=== PATIENT | female | born 1960 | race African-American/Black ===

== ENCOUNTER 2016-10-11 09:19 | Emergency (ER) | payer MEDICARE, OTHER ==
[~2016-10-11] VITALS: Ht 165.1 cm; Wt 89.8 kg
--- NOTE | 2016-10-11 09:51 | PHYS DOC ---
Past Medical History Past Medical History: GERD, Other Additional Past Medical Histor: sarcoidosis Past Surgical History: Cholecystectomy, Gastric Bypass, Tonsillectomy, Tubal ligation, Other Additional Past Surgical Histo: thyroidectomy, hernia repair Alcohol Use: Rarely Drug Use: None Adult General Chief Complaint Chief Complaint: CHEST PAIN HPI HPI Patient is a 56 year old female presents to the emergency department with a history of bariatric surgery 9 months ago. Patient states that 3-4 days ago she has been having chest discomfort with eating and feels as though someone is choking her. She currently states her pain is a 0/10. She states [facility] had completed an ultrasound to make sure she was not having problems with her sarcoidosis. Patient denies any radiation of pain. She does state that the pain causes her to have some shortness of air. Patient states that she did not call her bariatric surgeon choice to provide them with the discomfort she was having. Review of Systems Review of Systems Constitutional: Denies fever or chills [] Eyes: Denies change in visual acuity, redness, or eye pain [] HENT: Denies nasal congestion or sore throat [] Respiratory: Denies cough or shortness of breath [] Cardiovascular: No additional information not addressed in HPI [] GI: upper abdominal pain, denies nausea, vomiting, bloody stools or diarrhea [] : Denies dysuria or hematuria [] Musculoskeletal: Denies back pain or joint pain [] Integument: Denies rash or skin lesions [] Neurologic: Denies headache, focal weakness or sensory changes [] Endocrine: Denies polyuria or polydipsia [] Current Medications Current Medications Current Medications Medications (Trade) Dose Ordered Sig/Radha Start Time Stop Time Status Last Admin Dose Admin Info (Do NOT chart on this entry -- for MONITORING) 1 each PRN DAILY PRN 10/11/16 10:30 10/13/16 10:29 Iohexol (Omnipaque 240 Mg/ml) 50 ml 1X ONCE 10/11/16 10:15 10/11/16 10:18 DC 10/11/16 11:56 50 ML Iohexol (Omnipaque 300 Mg/ml) 75 ml 1X ONCE 10/11/16 10:15 10/11/16 10:18 DC 10/11/16 11:56 75 ML Pantoprazole Sodium (Protonix) 40 mg 1X ONCE 10/11/16 13:30 10/11/16 13:31 DC 10/11/16 14:17 40 MG Allergies Allergies Allergies Coded Allergies Type Severity Reaction Last Updated Verified Penicillins Allergy Severe "made me legally blind" 10/11/16 Yes lemon Allergy Severe "I swell all up" 10/11/16 Yes [place] owingeh Allergy Severe "I swell all up" 10/11/16 Yes diphenhydramine Adverse Reaction Mild vomiting 10/11/16 Yes Physical Exam Physical Exam Constitutional: Well developed, well nourished, no acute distress, non-toxic appearance. [] HENT: Normocephalic, atraumatic, bilateral external ears normal, oropharynx moist, no oral exudates, nose normal. [] Eyes: PERRLA, EOMI, conjunctiva normal, no discharge. [] Neck: Normal range of motion, no tenderness, supple, no stridor. [] Cardiovascular:Heart rate regular rhythm, no murmur [] Lungs & Thorax: Bilateral breath sounds clear to auscultation [] Abdomen: Bowel sounds hypoactive, soft, no tenderness, no masses, no pulsatile masses. [] Skin: Warm, dry, no erythema, no rash. [] Back: No tenderness Extremities: No tenderness, no cyanosis, no clubbing, ROM intact, no edema. [] Neurologic: Alert and oriented X 3, normal motor function, normal sensory function, no focal deficits noted. [] Psychologic: Affect normal, judgement normal, mood normal. [] Current Patient Data Vital Signs Vital Signs Date Time Temp Pulse Resp B/P (MAP) Pulse Ox O2 Delivery O2 Flow Rate FiO2 10/11/16 11:30 74 12 156/89 (111) 100 Room Air 10/11/16 09:25 98.0 98.0 Lab Values Laboratory Tests Test 10/11/16 09:45 10/11/16 09:55 10/11/16 10:55 10/11/16 13:30 White Blood Count 6.5 x10^3/uL (4.0-11.0) Red Blood Count 5.47 x10^6/uL (3.50-5.40) H Hemoglobin 11.7 g/dL (12.0-15.5) L Hematocrit 36.0 % (36.0-47.0) Mean Corpuscular Volume 66 fL (79-100) L Mean Corpuscular Hemoglobin 21 pg (25-35) L Mean Corpuscular Hemoglobin Concent 33 g/dL (31-37) Red Cell Distribution Width 17.2 % (11.5-14.5) H Platelet Count 324 x10^3/uL (140-400) Neutrophils (%) (Auto) 53 % (31-73) Lymphocytes (%) (Auto) 34 % (24-48) Monocytes (%) (Auto) 10 % (0-9) H Eosinophils (%) (Auto) 2 % (0-3) Basophils (%) (Auto) 1 % (0-3) Neutrophils # (Auto) 3.5 x10^3uL (1.8-7.7) Lymphocytes # (Auto) 2.2 x10^3/uL (1.0-4.8) Monocytes # (Auto) 0.7 x10^3/uL (0.0-1.1) Eosinophils # (Auto) 0.2 x10^3/uL (0.0-0.7) Basophils # (Auto) 0.0 x10^3/uL (0.0-0.2) Platelet Estimate Adequate (ADEQUATE) Anisocytosis Slight Microcytosis Slight Troponin I Quantitative < 0.017 ng/mL (0.000-0.055) < 0.017 ng/mL (0.000-0.055) POC Urine HCG, Qualitative Hcg negative (Negative) Sodium Level 140 mmol/L (136-145) Potassium Level 4.0 mmol/L (3.5-5.1) Chloride Level 103 mmol/L (98-107) Carbon Dioxide Level 28 mmol/L (21-32) Anion Gap 9 (6-14) Blood Urea Nitrogen 18 mg/dL (7-20) Creatinine 1.0 mg/dL (0.6-1.0) Estimated GFR (Cockcroft-Gault) 69.4 BUN/Creatinine Ratio 18 (6-20) Glucose Level 85 mg/dL (70-99) Calcium Level 9.5 mg/dL (8.5-10.1) Total Bilirubin 0.3 mg/dL (0.2-1.0) Aspartate Amino Transferase (AST) 14 U/L (15-37) L Alanine Aminotransferase (ALT) 20 U/L (14-59) Alkaline Phosphatase 104 U/L (46-116) Total Protein 8.6 g/dL (6.4-8.2) H Albumin 3.3 g/dL (3.4-5.0) L Albumin/Globulin Ratio 0.6 (1.0-1.7) L Creatine Kinase 41 U/L (26-192) Creatine Kinase MB (Mass) < 0.5 ng/mL (0.0-3.6) Creatine Kinase MB Relative Index % (0-4) Laboratory Tests 10/11/16 09:45 Laboratory Tests 10/11/16 10:55 EKG EKG Heart rate 76 rhythm noted no STEMI noted per Dr. Giles.[] Radiology/Procedures Radiology/Procedures [facility] [address] [place] [address] IMAGING REPORT Signed PATIENT: FRANC CHANEY ACCOUNT: [id number] : 1960 LOCATION: ER AGE: 56 SEX: F EXAM STATUS: REG ER ORD. PHYSICIAN: ANGE COX APRN REASON: chest discomfort after eating hx bariatric sugery PO contrast also please PROCEDURE: CT CHEST ABD PELVIS W/CONTRAST CT of the chest, abdomen and pelvis with contrast, 10/11/2016: History: Chest pain after eating Multidetector CT imaging was performed following oral and IV administration of contrast. Comparison is made to a study from 03/29/2013. There are moderate streaky parenchymal opacities in both lungs also present on the previous study. The findings are compatible with scarring in this patient with a given history of sarcoidosis. The scarring is confluent in some areas with associated volume loss. There is hyperexpansion of the right upper lobe, unchanged. No new pulmonary abnormality is seen. There is no evidence of pleural fluid. The thoracic aorta is of normal caliber. The heart is not enlarged. No mediastinal or hilar adenopathy is evident. There are calcified mediastinal and left hilar lymph nodes. There is a suggestion of a small hiatal hernia. The gallbladder is surgically absent. No hepatic abnormality is seen. The pancreas is unremarkable. The spleen is of normal size. No renal abnormality is detected. There is mild aortoiliac calcific plaquing without evidence of aneurysm. No abdominal or pelvic adenopathy is seen. There are numerous surgical sutures related to the stomach in this patient with the given history of previous gastric bypass surgery. The bowel loops are not dilated. The appendix is visualized and shows no abnormality. No free fluid or free air is evident in the abdomen or pelvis. IMPRESSION: 1. Moderately severe bilateral parenchymal scarring, presumably related to the patient's given history of sarcoidosis. 2. Previous gastric surgery. 3. Small hiatal hernia. 4. No acute abnormality is identified in the chest, abdomen or pelvis. PQRS Compliance Statement: One or more of the following individualized dose reduction techniques were utilized for this examination: 1. Automated exposure control 2. Adjustment of the mA and/or kV according to patient size 3. Use of iterative reconstruction technique DICTATED and SIGNED BY: MACKENZIE RAMIREZ MD DATE: 10/11/16 1222 CC: RL PRAJAPATI MD; EVONNE GILES MD; ANGE COX APRN ~ Impressions: GERD Course & Med Decision Making Course & Med Decision Making Pertinent Labs and Imaging studies reviewed. (See chart for details) 1137 spoke with the lab in regards to her chemistry results. They state the patient is a very difficult stick they just received the blood work and should have some chemistries back in 10 minutes. [address] Giles who will continue with patients treatment plan, Dr Giles is aware the CT scan is still pending at this time. She was a checkout to me to follow-up on the CT scan. It shows a small hiatal hernia. Her pain is consistent with pain on swallowing and will likely need to follow-up with GI doctor. She is being discharged with Nexium since she's been out of that in addition to referral to Dr. Todd. I am not concerned that this is her heart is causing this is his only made when she tries to swallow food and feels like it gets stuck in her esophagus. She is being discharged home in stable condition at this time. Return precautions given she is agreeable to the plan and being discharged in stable condition. Dragon Disclaimer Dragon Disclaimer This electronic medical record was generated, in whole or in part, using a voice recognition dictation system. Departure Departure Impression: Primary Impression: Abdominal pain Disposition: 01 HOME, SELF-CARE Condition: STABLE Referrals: WILBUR OGLESBY MD (PCP) Patient Instructions: Gastroesophageal Reflux Disease, Adult, [id number] Additional Instructions: Your EKG, labs do not show any acute abnormalities. Your being discharged home he will need to follow-up with Dr. Todd who is our GI doctor and you can take omeprazole as previously instructed. Return ER for worsening pain or other concerns. You will need to follow up her primary care physician within the next few weeks. Scripts Esomeprazole Magnesium (NEXIUM CAPSULE) 20 Mg Capsule.dr 1 CAP PO DAILY, #30 CAP 2 Refills Prov: EVONNE GILES MD 10/11/16 Problem Qualifiers Primary Impression: Abdominal pain Abdominal location: unspecified location Qualified Codes: R10.9 - Unspecified abdominal pain ANGE COX APRN October 11, 2016 09:51 EVONNE GILES MD October 11, 2016 13:01
[2016-10-11 10:02] LABS: BASO % 1 % (0-3); EOS % 2 % (0-3); HEMOGLOBIN 11.7 g/dL (12.0-15.5); LYMPH # 2.2 x10^3/uL (1.0-4.8); LYMPH % 34 % (24-48); MEAN CORPUSCULAR HEMOGLOBIN 21 pg (25-35); MEAN CORPUSCULAR HGB CONC 33 g/dL (31-37); MEAN CORPUSCULAR VOLUME 66 fL (79-100); MONO % 10 % (0-9); NEUT % 53 % (31-73); PLATELET COUNT 324 x10^3/uL (140-400); RED BLOOD COUNT 5.47 x10^6/uL (3.50-5.40); RED CELL DISTRIBUTION WIDTH 17.2 % (11.5-14.5); WHITE BLOOD COUNT 6.5 x10^3/uL (4.0-11.0)
[2016-10-11] MEDS ORDERED: IOHEXOL 240 MG/ML 50ML VIAL. PO ONE (10:15)
[2016-10-11] MEDS ORDERED: IOHEXOL 300 MG/ML 75 ML VIAL IV ONE (10:15)
[2016-10-11] MEDS ORDERED: CONTRAST GIVEN MC PRN (10:30)
[2016-10-11 11:06] LABS: ANISOCYTOSIS SLIGHT; MICROCYTOSIS SLIGHT; PLT ESTIMATE ADEQUATE (ADEQUATE)
--- NOTE | 2016-10-11 11:11 | EKG ---
[address] [place] [address] Test Date: 2016-10-11 Test Time: 09:42:49 Pat Name: FRANC CHANEY Department: Room: Gender: F [employer]: : 1960 Requested By: ANGE COX Order Number: [id number] Reading MD: Measurements Intervals [place] Rate: 76 P: 0 FL: 150 QRS: 70 QRSD: 84 T: 28 QT: 380 QTc: 427 Interpretive Statements SINUS RHYTHM QRS(T) CONTOUR ABNORMALITY CANNOT RULE OUT ANTEROSEPTAL MYOCARDIAL DAMAGE RI6.01 Unconfirmed report No previous ECG available for comparison
[2016-10-11 11:48] LABS: CALCIUM 9.5 mg/dL (8.5-10.1); GFR 69.4
[2016-10-11 11:56] LABS: ALBUMIN 3.3 g/dL (3.4-5.0); ALBUMIN/GLOBULIN RATIO 0.6 (1.0-1.7); TOTAL BILIRUBIN 0.3 mg/dL (0.2-1.0); TOTAL PROTEIN 8.6 g/dL (6.4-8.2)
--- NOTE | 2016-10-11 12:39 | RAD ---
CT of the chest, abdomen and pelvis with contrast, 10/11/2016: History: Chest pain after eating Multidetector CT imaging was performed following oral and IV administration of contrast. Comparison is made to a study from 03/29/2013. There are moderate streaky parenchymal opacities in both lungs also present on the previous study. The findings are compatible with scarring in this patient with a given history of sarcoidosis. The scarring is confluent in some areas with associated volume loss. There is hyperexpansion of the right upper lobe, unchanged. No new pulmonary abnormality is seen. There is no evidence of pleural fluid. The thoracic aorta is of normal caliber. The heart is not enlarged. No mediastinal or hilar adenopathy is evident. There are calcified mediastinal and left hilar lymph nodes. There is a suggestion of a small hiatal hernia. The gallbladder is surgically absent. No hepatic abnormality is seen. The pancreas is unremarkable. The spleen is of normal size. No renal abnormality is detected. There is mild aortoiliac calcific plaquing without evidence of aneurysm. No abdominal or pelvic adenopathy is seen. There are numerous surgical sutures related to the stomach in this patient with the given history of previous gastric bypass surgery. The bowel loops are not dilated. The appendix is visualized and shows no abnormality. No free fluid or free air is evident in the abdomen or pelvis. IMPRESSION: 1. Moderately severe bilateral parenchymal scarring, presumably related to the patient's given history of sarcoidosis. 2. Previous gastric surgery. 3. Small hiatal hernia. 4. No acute abnormality is identified in the chest, abdomen or pelvis. PQRS Compliance Statement: One or more of the following individualized dose reduction techniques were utilized for this examination: 1. Automated exposure control 2. Adjustment of the mA and/or kV according to patient size 3. Use of iterative reconstruction technique
[2016-10-11] MEDS ORDERED: PANTOPRAZOLE 40 MG TABLET.DR. PO ONE (13:30)
[2016-10-11 14:23] LABS: CKMB MASS < 0.5 ng/mL (0.0-3.6); CREATINE KINASE 41 U/L (26-192)
[2016-10-11 14:29] VITALS: BP 156/81
[2016-10-11] MEDS ORDERED: ESOM20CA PO (14:30)
== END 2016-10-11 14:58 | disposition home or self-care (01) ==
LOC: ER 10:11
DX: R10.9 Unspecified abdominal pain (principal); K21.9 Gastro-esophageal reflux disease without esophagitis; Z98.84 Bariatric surgery status; Z90.49 Acquired absence of other specified parts of digestive tract; Z98.51 Tubal ligation status; Z88.0 Allergy status to penicillin; Z88.8 Allergy status to other drugs, medicaments and biological substances; Z91.018 Allergy to other foods
CPT/HCPCS: 36415; 71260; 74177; 80053; 82553; 84484; 84703; 85007; 85027; 93005; 99285; Q9966; Q9967; 81025

== ENCOUNTER → 2017-02-03 | Outpatient (CLI) | payer MEDICARE, OTHER ==
[~2017-02-03] MED LIST: ESOM20CA PO
--- NOTE | 2017-02-03 09:54 | RAD ---
DATE: 02/03/2017 EXAM: DIGITAL SCREEN BILAT W/CAD HISTORY: Routine screening COMPARISON: 02/02/2016 This study was interpreted with the benefit of Computerized Aided Detection (CAD). The breast parenchyma shows scattered fibroglandular densities. Breast parenchyma level B. FINDINGS: On the oblique view of the left breast there is a small nodular opacity projected over the retroareolar region. It was not evident on the previous exam. No corresponding density is seen on the cc view. This is most likely a summation shadow. No other new or enlarging breast densities are seen. Scattered benign type calcifications are present. No suspicious microcalcifications are seen. IMPRESSION: Possible developing left breast nodule as described above. Spot compression and straight medial lateral views are suggested and if a suspicious density persists, left breast ultrasound would then indicated. BI-RADS CATEGORY: 0 INCOMPLETE: NEEDS ADDITIONAL IMAGING EVALUATION AND/OR PRIOR MAMMOGRAMS FOR COMPARISON. RECOMMENDED FOLLOW-UP: ADD ADDITIONAL IMAGING PQRS compliance statement: Patient information was entered into a reminder system with a target due date for the next mammogram. Mammography is a sensitive method for finding small breast cancers, but it does not detect them all and is not a substitute for careful clinical examination. A negative mammogram does not negate a clinically suspicious finding and should not result in delay in biopsying a clinically suspicious abnormality. "Our facility is accredited by the [employer] Mammography Program."
== END | disposition home or self-care (01) ==
LOC: MAMMO 08:04
PROVIDERS: ATTEND Internal Medicine
DX: Z12.31 Encounter for screening mammogram for malignant neoplasm of breast (principal)
CPT/HCPCS: G0202; 77067

== ENCOUNTER → 2017-02-11 | Outpatient (CLI) | payer MEDICARE, OTHER ==
--- NOTE | 2017-02-11 10:10 | RAD ---
DATE: 02/11/2017 EXAM: DIGITAL DIAGNOSTIC LT HISTORY: Possible developing nodule seen on screening COMPARISON: Screening examination 8 days earlier FINDINGS: Breast Density: SCATTERED The breast parenchyma shows scattered fibroglandular densities. Breast parenchyma level B. A coned compression MLO view and an ML view were obtained. On the additional images obtained no definite abnormality is seen and the findings on the screening examination are most compatible with summation artifact. A single MLO view of the left breast is suggested in 6 months to further document stability IMPRESSION: Probable benign findings. A single follow-up MLO view of the left breast is suggested in 6 months BI-RADS CATEGORY: 3 PROBABLE BENIGN FINDING(S-SHORT INTERVAL FOLLOW-UP SUGGESTED RECOMMENDED FOLLOW-UP: 6M 6 MONTH FOLLOW-UP PQRS compliance statement: Patient information was entered into a reminder system with a target due date 08/11/2017 for the next mammogram. Mammography is a sensitive method for finding small breast cancers, but it does not detect them all and is not a substitute for careful clinical examination. A negative mammogram does not negate a clinically suspicious finding and should not result in delay in biopsying a clinically suspicious abnormality. "Our facility is accredited by the [employer] Mammography Program."
== END | disposition home or self-care (01) ==
LOC: MAMMO 09:49
PROVIDERS: ATTEND Internal Medicine
DX: R92.8 Other abnormal and inconclusive findings on diagnostic imaging of breast (principal)
CPT/HCPCS: G0206; 77065

== ENCOUNTER → 2017-10-13 | Outpatient (CLI) | payer MEDICARE, OTHER | END | disposition home or self-care (01) | LOC: MAMMO 09:02 | DX: R92.8 Other abnormal and inconclusive findings on diagnostic imaging of breast (principal) | CPT/HCPCS: 77065; G0279 ==

== ENCOUNTER → 2019-07-15 | Outpatient (CLI) | payer MEDICARE, OTHER ==
[~2019-07-15] MED LIST changes: +APIX5TAB PO; +CONTRAST GIVEN. MC PRN; +GADOTERATE 7.5 MMOL/15ML VIAL. IVP ONE; +HYDR-2145 PO; +IOHEXOL 300 MG/ML 100ML VIAL. IV ONE; +OMEP20CA16 PO; +VENTOLIN HFA18 GM INH
--- NOTE | 2019-07-16 09:18 | KCIC ---
BRAIN WO/W CONTRAST History: History of traumatic brain injury. Chronic headaches. sarcoidosis. Technique: Multiplanar, multi sequential pre and postcontrast MR imaging was performed of the brain. Comparison: October 04, 2004 Findings: No restricted diffusion to suggest infarct. No intracranial hemorrhage. No mass effect. No hydrocephalus. Mild brain parenchymal volume loss for age. Moderate focal and confluent foci of T2/FLAIR hyperintensity within the subcortical, deep and periventricular white matter including the left cerebellum. Overall progressed compared to 2004. No pathologic enhancement. Imaged orbits are unremarkable. Left inferior maxillary sinus mucous retention cyst. Mild left maxillary sinus because of thickening. Mastoid air cells are clear. Impression: 1. Multifocal nonspecific white matter lesions, likely related to reported clinical history of sarcoidosis. No pathologic enhancement. Electronically signed by: Jaleel Soares DO (07/16/2019 9:15 AM) [id number]
--- NOTE | 2019-07-16 10:25 | KCIC ---
Examination: CT CHEST W/CONTRAST History: Advanced sarcoidosis Comparison/Correlation: 10/11/2016 CT chest abdomen pelvis with contrast, 09/26/2012 CT chest without contrast Findings: Axial images of chest were obtained following IV contrast. Sagittal and coronal reformatted images were provided. Scarring involving the left anterior upper lung field level is noted. Medial right upper lung field level scarring is also evident. Scarring involving the lung bases also seen. Relative lucency of the right upper lobe is noted and this may represent air trapping. No enlarged thoracic lymph nodes. Left lower paratracheal lymph node is not enlarged and similar to prior exam. Suture material involving the gastroesophageal junction region is present with hiatal hernia evident. Tracheobronchial tree is unremarkable. No pleural or pericardial effusion. Bony structures are unremarkable. Cholecystectomy noted. Impression: Scattered bilateral scarring involving the lung gomez is compared to previous exam. No enlarged lymph nodes or change in lymph nodes in the interval. No new process. Hiatal hernia. Suture material at the gastroesophageal junction level. PQRS Compliance Statement: One or more of the following individualized dose reduction techniques were utilized for this examination: 1. Automated exposure control 2. Adjustment of the mA and/or kV according to patient size 3. Use of iterative reconstruction technique Electronically signed by: William Hylton MD (07/16/2019 10:22 AM) [facility]
== END | disposition home or self-care (01) ==
LOC: KCIC MRI 12:46
PROVIDERS: ATTEND Preventive Medicine Public Health & General Preventive Medicine
DX: G93.89 Other specified disorders of brain (principal); R91.8 Other nonspecific abnormal finding of lung field; K44.9 Diaphragmatic hernia without obstruction or gangrene; G44.041 Chronic paroxysmal hemicrania, intractable; D68.0 Von Willebrand disease
CPT/HCPCS: 70553; 71260; Q9967